=== PATIENT | male | born 1970 | race Hispanic/Latino ===

== ENCOUNTER 2019-05-31 20:38 | Observation (INO) | payer SELFPAY ==
[~2019-05-31 20:38] MED LIST: ISOVUE-370 76%-LOCM 1 ML ONE
[2019-05-31 21:21] LABS: #Eosinphils 0.2 thou/uL (0.0-0.7); #Lymphocytes 2.5 thou/uL (1.20-3.40); #Monocytes 0.9 thou/uL (0.11-0.59); #Neutrophils 7.1 thou/uL (1.40-6.50); %Basophils 0.4 % (0.0-1.0); %Lymphocytes 23.2 % (21.0-51.0); %Monocytes 7.9 % (0.0-10.0); %Neutrophils 66.4 % (42.0-75.0); Mean Corpuscular HGB CONC 34.9 g/dL (32.0-36.0); Mean Corpuscular Hemoglobin 30.8 pg (27.0-31.0); Mean Corpuscular Volume 88.2 fL (78.0-98.0); Mean Platelet Volume 7.9 fL (7.4-10.4); Platelet Count 290 thou/uL (130-400); RBC Distribution Width 11.7 % (11.5-14.5); Red Blood Cell (RBC) Count 5.19 mill/uL (4.70-6.10); White Blood Cell (WBC) Count 10.6 thou/uL (4.8-10.8)
--- NOTE | 2019-05-31 21:26 | RAD ---
EXAM: CHEST ONE VIEW: 05/31/19 HISTORY: Dyspnea. FINDINGS: Normal cardiac silhouette. Lungs and pleural spaces are clear. No pneumothorax or osseous abnormaliti es. IMPRESSION: No acute cardiopulmonary process. POS: [facility]
[2019-05-31 21:44] LABS: ALT (SGPT) 46 U/L (8-55); AST (SGOT) 23 U/L (5-34); Albumin 4.3 g/dL (3.5-5.0); Alkaline Phosphatase 86 U/L (40-110); Anion Gap 13 mmol/L (10-20); BUN (Urea Nitrogen) 16 mg/dL (8.9-20.6); Bilirubin, Total 0.3 mg/dL (0.2-1.2); CK (CPK) 200 U/L (30-200); Calc. Creatinine Clearance 0 mL/min (70-130); Calcium 9.7 mg/dL (7.8-10.44); Carbon Dioxide 24 mmol/L (22-29); Chloride 103 mmol/L (98-107); Estimated GFR-MDRD 88; Globulin 3.3 g/dL (2.4-3.5); Glucose 172 mg/dL (70-105); Lipase 16 U/L (8-78); Potassium 3.4 mmol/L (3.5-5.1); Protein, Total 7.6 g/dL (6.0-8.3); Sodium 137 mmol/L (136-145)
[2019-05-31] MEDS ORDERED: Metoclopramide HCl 10 MG/2 ML VIAL ONE (21:47)
[2019-05-31] MEDS ORDERED: Acetaminophen 500 MG TAB ONE (21:47)
[2019-05-31] MEDS ORDERED: diphenhydrAMINE 50 MG/ML VIAL ONE (21:47)
[2019-05-31] MEDS ORDERED: Pantoprazole 40 MG VIAL ONE (22:29)
--- NOTE | 2019-05-31 22:33 | CT ---
Exam: Head CT without contrast HISTORY: Migraine for 4 days. Severe headache. Neck pain. COMPARISON: 11/11/2011 FINDINGS: Hemorrhage: No intraparenchymal hemorrhage or extra-axial hematoma. Brain parenchyma: Cortical gillis-white matter differentiation is preserved. No mass effect or midline shift. Basilar cisterns are patent. Ventricular system: Ventricles and sulci are patent and symmetric. Calvarium: Intact. Sinuses and mastoid air cells: Mild mucosal thickening of the paranasal sinuses. Probable mucous rete ntion cyst in the left maxillary sinus, similar to previous examination. Adequate mastoid air cell aeration. IMPRESSION: 1. No acute intracranial process 2. Paranasal sinus disease.
--- NOTE | 2019-05-31 22:40 | CT ---
Exam: CT angiogram of the thoracic aorta CT angiogram of the abdominal aorta HISTORY: Chest pain with radiation to the back. Comparison: None TECHNIQUE: CT angiogram of the thoracic and abdominal aorta performed in the axial plane. Three-dimen sional reformatted images are submitted. Chest CT: Visualized axilla and lower neck are unremarkable. No mediastinal mass, lymphadenopathy or hematoma. Heart size is upper normal. Trachea and central bronchi are patent No pleural effusion or pneumothorax. Patchy groundglass opacities in the lung bases. Additional linea r opacities in the lung bases may represent atelectasis and/or scarring. There is a 5 mm density adjacent to the right major fissure, likely representing a subpleural lymph node. There is a 0.4 x 0. 4 cm solid nodule in the right upper lobe. Abdomen CT: Hypoattenuation in the liver likely due to hepatic steatosis. No enhancing masses within the hepatic parenchyma. Normal gallbladder. Appropriate arterial phase enhancement of the spleen, pancreas and adrenal glands. No gastrohepatic, retrocrural or periportal lymphadenopathy. No evidence of mass, lymphadenopathy or free air or free fluid in the visualized mesentery Visualized alimentary canal is grossly unremarkable. Limited evaluation due to lack of oral contrast. Symmetric enhancement kidneys. Bilaterally no obstructive uropathy. Bilateral nonobstructing calculi in the renal pelvis largest calculus in the right renal pelvis measures 0.3 cm. Largest calculus in the left renal pelvis measures 0.5 cm. Osseous structures: No lytic or blastic CT ANGIOGRAM: The root of the aorta, ascending thoracic aorta, aortic arch, descending thoracic aorta, abdominal ao rta, aortic bifurcation and visualized iliac arteries have appropriate enhancement and luminal diameter. Celiac artery origin, superior mesenteric artery, left and right renal arteries, inferior m esenteric artery as well as the origin of the great vessels of the neck have appropriate enhancement and luminal diameter. No evidence of aneurysm, dissection or significant luminal narrowin g. IMPRESSION: 1. Unremarkable CT angiogram of the thoracic aorta and abdominal aorta. 2. Pleural-based nodule in the right hemithorax, adjacent to the major fissure as well as a solid nod ule in the right upper lobe as described above. The nodule adjacent to the major fissure is presumed to represent a subpleural lymph node. Code lung nodule. Transcribed Date/Time: 05/31/2019 11:25 PM
[2019-05-31] MEDS ORDERED: Lorazepam 2 MG/ML VIAL ONE (23:28)
[2019-06-01] MEDS ORDERED: Ondansetron PF 4 MG/2 ML Vial IVP PRN ×2 (01:10→09:15)
[2019-06-01] MEDS ORDERED: Acetaminophen 325 MG TAB PO PRN ×2 (01:10→09:15)
[2019-06-01] MEDS ORDERED: Ondansetron ODT 4 MG TAB SL PRN (01:10)
[2019-06-01] MEDS: Sodium Chloride 0.9% 1,000 ML IV SCH ×2 (02:12→09:30)
[2019-06-01 08:05] VITALS: BP 108/73; TEMP 97.6
[2019-06-01] MEDS ORDERED: HumaLOG 300 UNITS/3 ML VIAL SC PRN (09:15)
[2019-06-01] MEDS ORDERED: Guaifenesin DM 100-10/5 ML UDCUP PO PRN (09:15)
[2019-06-01] MEDS ORDERED: Ketorolac Tromethamine 30 MG/ML VIAL IVP PRN (09:15)
[2019-06-01] MEDS ORDERED: Dextrose 50% Abboject 50 ML SYRINGE SLOW IVP PRN (09:15)
[2019-06-01] MEDS ORDERED: Dextrose 5% in Water 1,000 ML IV PRN (09:15)
--- NOTE | 2019-06-01 13:41 | NM ---
EXAM: Nuclear Medicine Cardiac SPECT with EF and wall motion: HISTORY: Chest pain, diabetes, family history of coronary artery disease Protocol: Exam was performed using adenosine stress protocol. The patient is injected with31 millicuries of technetium 99m sestamibi intravenously for stress image s. The patient is injected with9.6 millicuries of technetium 99 sestamibi intravenously for resting imag es. Multiple SPECT images are performed in the short axis, vertical long axis, and horizontal long axis. FINDINGS: No scan evidence for infarct or ischemia. TID:1.19 LHR:0.41 EDV:121 mL EF:60% Wall motion:Unremarkable IMPRESSION: EDV equals 121 mL. No scan evidence for infarct or ischemia.
[2019-06-01 14:42] LABS: Hemoglobin 15.2 g/dL (14.0-18.0); Platelet Count 262 thou/uL (130-400)
--- NOTE | 2019-06-02 07:11 | SS ---
DATE OF ADMISSION: 06/01/2019 DATE OF DISCHARGE: 06/01/2019 REASON FOR ADMISSION: 1. Chest pain. 2. One episode of dark vomiting. 3. Headache. HISTORY OF PRESENT ILLNESS: The patient gives history of having headaches for almost a month. This starts out in the forehead and radiates all the way to the back and to the shoulders. He has been getting off and on. He has also had acupuncture therapy done for the same and has had relief from it. Overnight, the patient developed chest pain, it was retrosternal in nature with no radiation. This pain lasted for an hour and was 4 to 5 out of 10 in the intensity. He also mentions that he was on a cruise to [facility] for 8-day duration and came back on Thursday. He ate some food for which he thinks he has had diarrhea nearly 4 to 5 times while on the cruise, but none at present. 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 He came back to work on Thursday and Thursday, both days being heavy with all the backlog. He got stressed out. He vomited around 10 p.m. yesterday. It was dark and smelly per the patient. No further episodes of vomiting. No diarrhea or black stools. The patient admits to taking Motrin 800 mg twice daily for the last 3 days for headache, BC Powder 2 to 3 times, and sumatriptan 100 mg one dose, none of which relieved his headache. No cough or expectoration. He has some nasal congestion, but no postnasal drip per patient. PAST MEDICAL AND SURGICAL HISTORY: Obesity, diabetes mellitus type 2 for last 2 years, and weight gain from last 1 year. No prior surgical history. CURRENT MEDICATIONS: 1. Multivitamin one tablet once daily. 2. Glipizide 5 mg twice daily. 3. Testosterone oydj-opc-eikfkae pill daily. ALLERGIES: ALLERGIC TO PENICILLIN. PERSONAL HISTORY: Does not abuse alcohol or drugs. No history of smoking. FAMILY HISTORY: Both parents are living and have hypertension. CODE STATUS: Full. Power of staff attorney is his . REVIEW OF SYSTEMS: CONSTITUTIONAL: Negative for weight loss or gain, ability to conduct usual activities. SKIN: Negative for rash, itching. EYES: Negative for double vision, pain. ENT/MOUTH: Negative for nose bleeding, neck stiffness, pain, tenderness. CARDIOVASCULAR: Negative for palpitations, dyspnea on exertion, orthopnea. RESPIRATORY: Negative for shortness of breath, wheezing, cough, hemoptysis, fever or night sweats. GASTROINTESTINAL: Negative for poor appetite, abdominal pain, heartburn, nausea , vomiting, constipation, or diarrhea. GENITOURINARY: Negative for urgency, frequency, dysuria, nocturia. MUSCULOSKELETAL: Negative for pain, swelling. NEUROLOGIC/PSYCHIATRIC: Negative for anxiety, depression. ALLERGY/IMMUNOLOGIC: Negative for skin rash, bleeding tendency. PHYSICAL EXAMINATION: GENERAL: The patient is a 49-year-old male, who is currently not in any acute distress. VITAL SIGNS: Blood pressure 128/94, pulse 94 per minute, respiratory rate 20 per minute, temperature 98.2 degrees Fahrenheit, and saturating 94% on room air. NECK: Supple. No elevated JVD. HEENT: Eyes; extraocular muscles intact. Pupils reacting to light. Oral cavity, mucous membranes are moist. No exudates or congestion. CARDIOVASCULAR SYSTEM: S1-S2 heard. Regular rhythm. RESPIRATORY SYSTEM: Air entry 1+ bilateral. No rales or rhonchi. ABDOMEN: Soft. Bowel sounds heard. No tenderness, rigidity, or guarding. EXTREMITIES: No peripheral edema or calf tenderness. VASCULAR SYSTEM: Peripheral pulses 2+ bilateral. No ischemic ulcerations or gangrene. CENTRAL NERVOUS SYSTEM: No gross focal deficits noted. The patient is alert, awake, and oriented well. PSYCHIATRIC SYSTEM: The patient's mood is a bit anxious, otherwise no hallucinations or delusions. LABORATORY DATA: A dissection protocol done was unremarkable. There is pleural based nodule in the right hemithorax adjacent to the major fissure as well as a solid nodule in the right upper lobe. CT brain without contrast showed no acute intracranial process. There is paranasal sinus disease seen. Mild mucosal thickening of the paranasal sinus was seen. Probable mucous retention cyst in the left maxillary sinus. Chest x-ray done, showed no acute cardiopulmonary process. Nuclear stress test done, showed no evidence of infarct or ischemia. Wall motion was unremarkable. TID was 1.1. H and H on admission were 16 and 45. Repeat H and H at 2:30 this afternoon are 15 and 44. Platelet count 262. MCV is 88. BUN 16 and creatinine 0.9. Troponin x3 negative. Albumin is 4.3. Serum glucose was 172. DISCHARGE MEDICATIONS: 1. Glipizide 5 mg twice daily. 2. Multivitamin one tablet once daily. 3. Ultram p.r.n. for pain. 4. Protonix 40 mg p.o. twice daily for a period of 30 days. CLINICAL IMPRESSION AND PLAN: The patient will be shortly discharged home. He initially came in with multiple symptoms including chest pain, headache with sinusitis, and one episode of dark vomiting. He has been prescribed Protonix 40 mg twice daily. He needs to continue this for a total of 30 days. His nuclear stress test was negative for reversible ischemia. The patient has been advised to follow up with his primary care physician, Dr. Nir Burton in 1 week. He was also counseled with regard to losing weight and healthy eating. He was counseled with regard to having formal testosterone levels checked through his primary care physician and to stop taking [id number] testosterone supplement. He is hemodynamically stable and will be shortly discharged home. Job ID: [id number] MTDD
--- NOTE | 2019-06-08 12:42 | STRESS ---
Acquisition Time: 2019-06-01 11:17:10 Total Exercise Time: 00:04:00 Test Indications: CHEST PAIN Medications: Protocol: ADENOSINE Max HR: 101 BPM 58% of Pred: 173 BPM Max BP: 122/070 mmHG Max Work Load: 1.0 METS RESTING ECG: NORMAL SINUS RHYTHM AT 67 BPM SYMPTOMS: NONE NORMAL BP RESPONSE ECTOPY: RARE PVC'S ECG STRESS: NO SIGNIFICANT CHANGES INTERPRETATION: NEGATIVE ECG/AWAIT NUCLEAR IMAGES FOR DEFINITIVE DIAGNOSIS Confirmed by AME GALDAMEZ ELLEN ([id number]) on 06/08/2019 12:42:24 PM Referred By: MD Stuart MANUEL Confirmed By:VIGNESH GALDAMEZ PA-C
--- NOTE | 2019-06-11 10:48 | EKG ---
Test Reason : CP Blood Pressure : / mmHG Vent. Rate : 095 BPM Atrial Rate : 095 BPM P-R Int : 172 ms QRS Dur : 106 ms QT Int : 372 ms P-R-T Axes : 024 075 008 degrees QTc Int : 467 ms Sinus rhythm with frequent Premature ventricular complexes Otherwise normal ECG Confirmed by JUVENTINO PENA, MAIN Fitzgerald ([id number]), food expeditor BHARAT ESTRELLA ([id number]) on 06/11/2019 10:47:52 AM Referred By: Confirmed By:MAIN JAUREGUI MD
== END 2019-06-01 15:48 | disposition home or self-care (01) ==
LOC: ERS 20:38 → 2SE 06-01 01:03
PROVIDERS: ADMIT Hospitalist; ATTEND Hospitalist
DX: R07.2 Precordial pain (principal); R51 Headache; J32.9 Chronic sinusitis, unspecified; R11.10 Vomiting, unspecified; E11.9 Type 2 diabetes mellitus without complications; R91.1 Solitary pulmonary nodule; N20.0 Calculus of kidney; E66.9 Obesity, unspecified; Z68.41 Body mass index [BMI] 40.0-44.9, adult; Z79.84 Long term (current) use of oral hypoglycemic drugs; Z88.0 Allergy status to penicillin
CPT/HCPCS: 36415; 70450; 71045; 71275; 72191; 74175; 78452; 80053; 82274; 82550; 83690; 84484; 85014; 85018; 85025; 85049; 93005; 93017; 94760; 96361; 96365; 96375; A9500; C9113; G0378; J0153; J1200; J1885; J2060; J2765; Q9966

== ENCOUNTER 2022-12-22 10:00 | Emergency (ER) | payer SELFPAY ==
[2022-12-22 10:38] LABS: #Eosinphils 0.3 thou/uL (0.0-0.7); #Lymphocytes 2.3 thou/uL (1.20-3.40); #Monocytes 0.5 thou/uL (0.11-0.59); #Neutrophils 5.4 thou/uL (1.40-6.50); %Basophils 0.4 % (0.0-1.0); %Eosinophils 3.2 % (0.0-10.0); %Lymphocytes 26.7 % (21.0-51.0); %Monocytes 5.4 % (0.0-10.0); %Neutrophils 64.2 % (42.0-75.0); Hemoglobin 15.9 g/dL (14.0-18.0); Mean Corpuscular HGB CONC 32.6 g/dL (32.0-36.0); Mean Corpuscular Hemoglobin 29.6 pg (27.0-31.0); Mean Corpuscular Volume 90.8 fl (78.0-98.0); Mean Platelet Volume 8.7 fL (7.4-10.4); Platelet Count 247 10x3/uL (130-400); RBC Distribution Width 11.5 % (11.5-14.5); Red Blood Cell (RBC) Count 5.36 mill/uL (4.70-6.10); White Blood Cell (WBC) Count 8.4 10x3/uL (4.8-10.8)
[2022-12-22 11:04] LABS: ALT (SGPT) 22 U/L (8-55); AST (SGOT) 9 U/L (5-34); Albumin 4.2 g/dL (3.5-5.0); Alkaline Phosphatase 105 U/L (40-110); Anion Gap 15 mmol/L (10-20); BUN (Urea Nitrogen) 14 mg/dL (8.9-20.6); Bilirubin, Total 0.3 mg/dL (0.2-1.2); Calc. Creatinine Clearance 0 mL/min (70-130); Calcium 9.7 mg/dL (7.8-10.44); Carbon Dioxide 25 mmol/L (22-29); Chloride 99 mmol/L (98-107); Estimated GFR 92; Globulin 3.5 g/dL (2.4-3.5); Glucose 359 mg/dL (70-105); Potassium 4.1 mmol/L (3.5-5.1); Protein, Total 7.7 g/dL (6.0-8.3); Sodium 135 mmol/L (136-145)
[2022-12-22 11:30] LABS: Bilirubin Negative (Negative); Blood, Urine Negative (Negative); Clarity Clear (Clear); Glucose, Urine (Dipstick) Greater than 1000 mg/dL (Negative); Ketone, Urine Negative (Negative); Leukocyte Negative Leu/uL (Negative); Nitrite Negative (Negative); Protein, Urine (Dipstick) Negative (Neg-Trace); Specific Gravity, Urine 1.037 (1.002-1.036); Urobilinogen Normal mg/dL (Less than 2)
[2022-12-22] MEDS ORDERED: Ketorolac Tromethamine 30 MG/ML VIAL ONE (14:16)
== END 2022-12-22 14:35 | disposition home or self-care (01) ==
LOC: ERS 10:00
DX: M54.31 Sciatica, right side (principal); M62.830 Muscle spasm of back; E11.9 Type 2 diabetes mellitus without complications; Z79.84 Long term (current) use of oral hypoglycemic drugs
CPT/HCPCS: 36415; 80053; 81003; 85025; 85652; 86140; 93005; 96372; J1885